=== PATIENT | male | born 1980 | race Caucasian/White ===

== ENCOUNTER 2016-03-18 13:30 | Outpatient (CLI) | payer OTHER ==
[2015-12-23 15:01] VITALS: BP 126/59
== END 2016-03-18 13:32 ==
LOC: CARD 13:30
PROVIDERS: ATTEND Internal Medicine Cardiovascular Disease
DX: I48.91 Unspecified atrial fibrillation (principal)
CPT/HCPCS: 93017

== ENCOUNTER 2016-07-22 14:08 | Outpatient (CLI) | payer OTHER ==
[2015-12-23 15:01] VITALS: BP 126/59
--- NOTE | 2016-07-22 14:56 | Diagnostic Imaging Report ---
ELOISE CHEATHAM [facility] [id number] [facility] [address] [address] Report Submission Date: Jul 22, 2016 2:48:49 PM CDT Patient Study Name: SADIE VILLALPANDO Date: Jul 22, 2016 2:14:16 PM CDT Modality Type: CR Gender: M Description: LOWER EXTREMITY : 84 Institution: [facility] Physician: ELOISE CHEATHAM Examination: Ankle plain film History: nkle discomfort Findings: 3 views of both the right and left ankle demonstrates normal cortical margins. Talar dome is intact. No evidence for fracture line. No soft tissue irregularity. Minimal anterior tibial lip spurring. Impression: Minimal degenerative changes. No evidence for fracture. Electronically signed on Jul 22, 2016 2:48:49 PM CDT by: David SMITH
== END 2016-07-22 14:10 ==
LOC: RAD 14:08
PROVIDERS: ATTEND Physician Assistant
DX: M25.571 Pain in right ankle and joints of right foot (principal)

== ENCOUNTER 2017-12-11 11:08 | Emergency (ER) | payer OTHER ==
[2017-12-11 11:18] VITALS: BP 168/67
--- NOTE | 2017-12-11 11:21 | ED Physician Documentation ---
Sore Throat/Dental Pain - HISTORIAN Historian: patient - HPI Chief Complaint: Dental Pain Additional Information: intro self as [employer]. pt presents to the ED via POV c/o dental pain/swelling since yesterday. pain is 8/10. pt reports he has tried orajel for the pain with no improvement. pt denies other complaints /symptoms. pt reports he does not have a dentist. List provided. pt denies current chest pain, dyspnea, syncope/near syncope, headache, dizz iness, visual disturbances, n/v/d, fever, rash, sick contacts, dysuria, trauma. melena or hematochezia, change in bowel or bladder function. anxiety or depression. ROS Negative unless otherwise specified. Context: Dental Caries, Possible Infection Associated Symptoms: denies: fever, chills Worsened By: cold - ROS CONST: no problems CVS/RESP: denies: chest pain, shortness of breath GI/: denies: nausea, vomiting MS/SKIN/LYMPH: denies: muscle aches, rash NEURO/PSYCH: none - PAST HX Past History: other (atrial fibrillation) Allergies/Adverse Reactions: Allergies Allergy/AdvReac Type Severity Reaction Status Date / Time No Known Allergies Allergy Verified 12/11/17 11:19 - SOCIAL HX Smoking History: non-smoker Alcohol Use: none Drug Use: none - FAMILY HX Family History: No - VITAL SIGNS Vital Signs: Vital Signs Temp Pulse Resp BP Pulse Ox 126/59 12/23/15 16:04 - REVIEWED ASSESSMENTS Nursing Assessment Reviewed: Yes Vitals Reviewed: Yes Dental Pain Physical Exam - EXAM General Appearance: no acute distress, other (obese) Head/Neck: trachea midline, no lymphadenopathy, mandibular swelling (R), pain on palpation (R). No: facial erythema, cervical lymphadenopathy, anterior, neck mass/swelling, stiff neck, meningismus, pain on palpation (L) Eyes: eyes nml inspection. No: pain of sinuses, conjunctivae pale, conjunctivae red Mouth/Throat: lips nml, dental tenderness, gum swelling around teeth (#32 caries erythema and mild edema/tenderness. ). No: no air way problems, tonsillar exudate, tonsillar swelling, peritonsillar mass, pointing abscess, increased saliva, hoarse voice, muffled voice, dry membranes, dry sockets Ear/Nose: nml inspection Respiratory: no resp. distress Abdomen: No: guarding Extremities: non-tender, nml ROM Skin: warm/dry, normal color Neuro/Psych: none Discharge Clincal Impression: Dental caries, Dental abscess, Chronic dental pain Referrals: Tulio Omer MD [Primary Care Provider] - 2 Days Additional Instructions: Follow up with a dentist STEVE. you will continue to have pain and infection u ntil you get the decayed tooth removed. Augmentin 875 mg twice a day for 7 days. Condition: Good Disposition: 01 HOME, SELF-CARE Decision to Admit: NO Date of Decison to Admit: 12/11/17 Decision Time: 11:24
[2017-12-11] MEDS ORDERED: traMADol HCL 50 MG TABLET PO ONE (11:26)
== END 2017-12-11 11:32 | disposition home or self-care (01) ==
LOC: ED 11:08
DX: K02.9 Dental caries, unspecified (principal); K04.7 Periapical abscess without sinus; K08.9 Disorder of teeth and supporting structures, unspecified